=== PATIENT | female | born 1975 | race American Indian/Alaskan Native ===

== ENCOUNTER 2016-04-25 07:50 | Outpatient (CLI) | payer MEDICAID ==
--- NOTE | 2016-04-26 11:46 | Mammography Report ---
BILATERAL DIGITAL SCREENING MAMMOGRAM with CAD: 04/25/16 07:50:00 CLINICAL: Baseline screening. FINDINGS: The breasts are almost entirely fatty. No mass, architectural distortion or suspicious calcifications. IMPRESSION: No mammographic evidence of malignancy. BI-RADS CATEGORY: 1 - - Negative RECOMMENDATION: Routine mammographic screening in one year. COMMENT: Patient follow-up letters are generated by our [email or web address] application.
== END 2016-04-25 07:51 | disposition home or self-care (01) ==
LOC: SPVWC 07:50
PROVIDERS: ATTEND General Practice
DX: Z12.31 Encounter for screening mammogram for malignant neoplasm of breast (principal)
CPT/HCPCS: 77067; G0202

== ENCOUNTER 2019-01-31 10:22 | Emergency (ER) | payer SELFPAY ==
--- NOTE | 2019-01-31 12:51 | Emergency Department Report ---
- General Chief Complaint: Upper Respiratory Infection Stated Complaint: COUGH/CHEST TIGHTNESS Source: patient Mode of arrival: Ambulatory Limitations: No Limitations - History of Present Illness Initial Comments: 43 yo female c/o dry cough x 1 week. The cough is keeping her up at night. Denies, chest pain, sob, fever, no nausea or vomiting. Josh any PMH MD Complaint: cough (DRY COUGH) -: week(s) (1) Associated Symptoms: headache (sometimes she coughs so much it gives her a headache.), cough. denies: fever, myalgias, chest pain, shortness of breath, abdominal pain, nausea, vomiting Treatments Prior to Arrival: other (robutussin) - Related Data Previous Rx's Medication Instructions Recorded Last Taken Type SUMAtriptan SUCCINATE [Imitrex] 50 mg PO Q2H PRN #20 tablet 10/14/15 Unknown Rx Benzonatate [Tessalon Perles] 100 mg PO Q8HR PRN #20 capsule 01/31/19 Unknown Rx Allergies Allergy/AdvReac Type Severity Reaction Status Date / Time morphine Allergy Rash Verified 10/10/15 19:56 Sulfa (Sulfonamide Allergy Rash Verified 09/18/13 08:27 Antibiotics) ED Review of Systems ROS: Stated complaint: COUGH/CHEST TIGHTNESS Other details as noted in HPI Comment: All other systems reviewed and negative ENT: denies: ear pain, throat pain, congestion Respiratory: cough. denies: orthopnea, SOB with exertion Cardiovascular: denies: chest pain, palpitations, dyspnea on exertion Gastrointestinal: denies: nausea, vomiting, diarrhea Skin: denies: rash ED Past Medical Hx - Past Medical History Previous Medical History?: Yes Hx Hypertension: No Hx Congestive Heart Failure: No Hx Diabetes: No Hx Asthma: No Hx COPD: No Additional medical history: Hyperthyroidism - Surgical History Additional Surgical History: Tubal Ligation - Social History Smoking Status: Never Smoker Substance Use Type: None - Medications Home Medications: Home Medications Medication Instructions Recorded Confirmed Last Taken Type SUMAtriptan SUCCINATE [Imitrex] 50 mg PO Q2H PRN #20 tablet 10/14/15 Unknown Rx Benzonatate [Tessalon Perles] 100 mg PO Q8HR PRN #20 capsule 01/31/19 Unknown Rx ED Physical Exam - General Limitations: No Limitations General appearance: alert, in no apparent distress - Head Head exam: Present: atraumatic, other (no frontal or maxillary sinus tenderness) - Eye Eye exam: Present: normal appearance - ENT ENT exam: Present: normal exam - Neck Neck exam: Present: full ROM. Absent: lymphadenopathy - Respiratory Respiratory exam: Present: normal lung sounds bilaterally. Absent: respiratory distress, wheezes, rales, rhonchi, chest wall tenderness - Cardiovascular Cardiovascular Exam: Present: regular rate, normal heart sounds - Extremities Exam Extremities exam: Present: normal inspection - Neurological Exam Neurological exam: Present: alert, oriented X3 - Psychiatric Psychiatric exam: Present: normal affect - Skin Skin exam: Present: warm, dry ED Course Vital Signs 01/31/19 10:31 Temperature 98.2 F Pulse Rate 85 Respiratory 20 Rate Blood Pressure 143/82 O2 Sat by Pulse 100 Oximetry ED Medical Decision Making - Radiology Data Radiology results: report reviewed CXR COMPARISON: 10/10/2015 FINDINGS: SUPPORT DEVICES: None. HEART / MEDIASTINUM: No significant abnormality. LUNGS / PLEURA: No significant pulmonary or pleural abnormality. .No pneumothorax. ADDITIONAL FINDINGS: No significant additional findings. IMPRESSION: 1. No acute findings. - Medical Decision Making Well appearing 43 yo female. Exam wnl. Pt concerned about the ongoing cough non productive for 1 week. Chest X-ray no acute findings. Discuss with patient management of uri and common cold. Tessalon perles given for cough. Increase clear fluids. Critical care attestation.: If time is entered above; I have spent that time in minutes in the direct care of this critically ill patient, excluding procedure time. ED Disposition Clinical Impression: Cough URI (upper respiratory infection) Qualifiers: URI type: unspecified viral URI Qualified Code(s): J06.9 - Acute upper respiratory infection, unspecified Disposition: DC-01 TO HOME OR SELFCARE Is pt being admited?: No Does the pt Need Aspirin: No Condition: Stable Instructions: Cold Symptoms (ED) Additional Instructions: Based on your examination today you are experiencing cold symptoms also known as Upper respiratory Infection caused by a virus. Increase oral fluids, rest. Take tylenol 650 mg every 4 hours as needed for headache or pain or fever. Your chest x-ray had no acute findings. Please follow up with your primary care doctor or [facility] in 2-3 days or sooner if no improvement. Prescriptions: Benzonatate [Tessalon Perles] 100 mg PO Q8HR PRN #20 capsule PRN Reason: Cough Referrals: PRIMARY CARE, [Primary Care Provider] - 3-5 Days
--- NOTE | 2019-01-31 13:16 | XRay Report ---
CHEST 2 VIEWS INDICATION / CLINICAL INFORMATION: cough. COMPARISON: 10/10/2015 FINDINGS: SUPPORT DEVICES: None. HEART / MEDIASTINUM: No significant abnormality. LUNGS / PLEURA: No significant pulmonary or pleural abnormality. .No pneumothorax. ADDITIONAL FINDINGS: No significant additional findings. IMPRESSION: 1. No acute findings. Signer Name: Brennen Leal MD Signed: 01/31/2019 1:11 PM Workstation Name: [id number]
[2019-01-31 14:33] VITALS: BP 137/82
== END 2019-01-31 13:50 | disposition home or self-care (01) ==
LOC: ED 10:22
DX: J06.9 Acute upper respiratory infection, unspecified (principal); E03.9 Hypothyroidism, unspecified; Z98.51 Tubal ligation status; Z79.899 Other long term (current) drug therapy; Z88.6 Allergy status to analgesic agent; Z88.2 Allergy status to sulfonamides
CPT/HCPCS: 71046